=== PATIENT | female | born 1995 | race Caucasian/White ===

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

== ENCOUNTER → 2017-09-24 16:31 | Observation (INO) ==
[2017-09-24 16:21] LABS: Bilirubin,Urine Negative (Negative); Blood,Urine Negative (Negative); Clarity,Urine Clear (Clear); Color,Urine Yellow (Yellow); Glucose,Urine (UA) Normal (Normal); Ketones,Urine Negative (Negative); Leukocyte Esterase,Urine Negative (Negative); Nitrite,Urine Negative (Negative); PH,Urine 6.5 pH Units (5.0-8.0); Protein,Urine Negative (Neg-Trace); Specific Gravity,Urine 1.015 (1.010-1.025); Urobilinogen,Urine Normal (Normal)
--- NOTE | 2017-09-24 16:34 | OB/GYN Progress Note ---
Date of Encounter: 09/24/17 Time of Encounter: 16:32 - Assessment and Plan (1) 20 weeks gestation of Current Visit: Yes Status: Acute (2) Vaginal discharge during in second trimester Current Visit: Yes Status: Acute Speculum exam shows thick white vaginal discharge consistent with normal , cervix closed, patient discharged home with labor and when to return to triage precautions (3) Pain of round ligament complicating , antepartum Current Visit: Yes Status: Acute Discussed round ligament pain in and comfort measures Subjective - Subjective Interval history: 20+5 weeks gestation presents to triage with complaints of vaginal red/ brown discharge since 09/10. Patient states she is been noticing she is been having leg a dark red to brown discharge, has increased in heaviness today. Last had intercourse last night at 5 PM. Complains of occasional groin pain and cramping. Reports movement, denies leaking of fluid Antepartum ROS: vaginal bleeding, movement normal, no loss of fluid, no contractions Objective - Exam FHR comments: Doppler tones 140 Abdomen: Present: soft, gravid Cervical dilation: Closed/thick/high
[2017-09-24 16:49] LABS: Amphetamine Screen,Urine Negative ng/mL (Cutoff=1000); Barbiturate Screen,Urine Negative ng/mL (Cutoff=200); Benzodiazepines Screen,Urine Negative ng/mL (Cutoff=200); Cannabinoid Screen,Urine Negative ng/mL (Cutoff = 50); Cocaine Screen,Urine Negative ng/mL (Cutoff= 300); Opiate Screen,Urine Negative ng/mL (Cutoff=300); Phencyclidine Screen,Urine Negative ng/mL (Cutoff=25)
== END | disposition home or self-care (01) ==
LOC: 1NENULAB
PROVIDERS: ADMIT Advanced Practice Midwife; ATTEND Advanced Practice Midwife

== ENCOUNTER 2018-01-16 13:30 | Inpatient (IN) ==
[~2018-01-16 13:30] MED LIST changes: +*HR* Nalbuphine 10 MG/ML AMPUL IVP PRN; -*HR* Nalbuphine 20 MG/ML AMPUL IVP PRN; -Penicillin G Potassium 5,000,000 UNIT in D5% in Water (Mini-Bag+) 100 ML IVPB ONE
[2018-01-16 14:11] LABS: Basophils % 0.2 %; Eosinophils % 0.2 %; Hematocrit 31.5 % (35.3-44.9); Hemoglobin 10.5 g/dL (11.5-15.4); Lymphocytes # 2.9 K/mcL (0.6-4.6); Lymphocytes % 17.2 %; Mean Corpuscular HGB Conc 33.3 g/dL (31.6-35.5); Mean Corpuscular Hemoglobin 27.6 pg (28.0-33.3); Mean Corpuscular Volume 82.9 fL (83.0-100.0); Mean Platelet Volume 10.3 fL (9.4-12.4); Monocytes # 0.8 K/mcL (0.0-1.3); Monocytes % 4.8 %; Neutrophils # 13.1 K/mcL (1.6-8.9); Platelet Count 284 K/mcL (140-400); Red Cell Distribution Width 13.1 % (11.5-14.5); Segmented Neutrophils % 76.6 %
--- NOTE | 2018-01-16 14:22 | OB/GYN History & Physical ---
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 Peratla updated on patient's status and POC History of Present Illness Chief complaint: Spontaneous rupture of membranes HPI: Ms. Gonzales is a 22 year old female at 37w0d presents to labor and delivery with complaints of SROM. Patient reports her water broke around 1200. She denies any abnormal color or odor to the fluid. Patient reports +FM. Denies feeling regular contractions. Patient denies any complications with her current or past . She receives care with the Midwives. Blood type: B+ Rubella: Immune Hep B: Nonreactive GBS: Negative Cystic Fibrosis carrier-FOB was tested and Negative Past Med Surg Social Fam HX - Past Medical History Source: patient Medical history: no medical history, glaucoma Additional medical history: miscarriage Psychiatric history: no psych history - Past Surgical History Surgical History: no surgical history - Social History Smoking Status: Current every day smoker Smokeless Tobacco Status: No Alcohol use: none Drug use: none Current living situation: Home - Independent Activity Level: Independent ambulation Recent Out of Country Travel Within the Last 8 Weeks: No Exposure or Possible Exposure to Illness During Travel: No - Family History Grandmother Living Status: Still Living Hx Family Endocrine Disorder: Yes (diabetes) Obstetrical History - Pregnancies : 3 Para: 1 Term: 1 : 0 Ab's: 1 Livin Medications and Allergies Vit/FA 1 each PO DAILY tab 10/25/16 [Rx] Ferrous Sulfate 325 mg PO DAILY 01/16/18 [History] Allergy/AdvReac Type Severity Reaction Status Date / Time clindamycin Allergy Rash Verified 04/25/15 15:45 Review of System OB - Constitutional Constitutional ROS IM: no chills, no fever(s), no headache(s) - Cardiovascular Cardiovascular: no chest pain, no irregular heart rhythm, no palpitations, no pedal edema, no syncope - Respiratory Respiratory: no dyspnea - Gastrointestinal Gastrointestinal: no cramping, no diarrhea, no heartburn, no nausea, no vomiting - Genitourinary Genitourinary: no abnormal vaginal bleeding, no difficulty urinating, no dysuria, no flank pain, no urinary frequency, no urinary incontinence, no vaginal odor, no vaginal pruritis Exam - Constitutional Constitutional: well developed, well nourished, no acute distress - HEENT HEENT: Normocephaly, Mucus Membranes Moist - Neck Neck exam: full ROM, supple - Lungs Respiratory exam: CTAB - Cardiovascular Cardiovascular exam: RRR, +S1, +S2 - Abdomen Abdomen: Present: bowel sounds normal, gravid, non tender - Extremities Extremities exam: full ROM, normal capillary refill, normal inspection Deep Tendon Reflex Grade: 2+ Normal - Cervix Dilation: 2 (per RN on admission) Effacement: 80 Station: -1 - Uterus Uterus exam: Present: normal size, normal contour - Anus/Rectum Anus/Rectum: Present: normal perianal skin - Comments Comments: FHR 125 bpm moderate variability +15x15 accels no decels noted irregular contractions. Cat. 1 tracing Results Result Diagrams: 01/16/18 13:31 Abnormal lab results WBC 17.1 K/mcL (4.3-11.1) H 01/16/18 13:31 RBC 3.80 M/mcL (3.82-4.97) L 01/16/18 13:31 Hgb 10.5 g/dL (11.5-15.4) L 18 13:31 Hct 31.5 % (35.3-44.9) L 01/16/18 13:31 MCV 82.9 fL (83.0-100.0) L 01/16/18 13:31 MCH 27.6 pg (28.0-33.3) L 01/16/18 13:31 Neutrophils # 13.1 K/mcL (1.6-8.9) H 01/16/18 13:31 All other labs normal. - VTE Reasons for not Prescribing Prophylaxis: Treatment not Indicated - Low risk for VTE
[2018-01-16 14:34] LABS: Amphetamine Screen,Urine Negative ng/mL (Cutoff=1000); Barbiturate Screen,Urine Negative ng/mL (Cutoff=200); Benzodiazepines Screen,Urine Negative ng/mL (Cutoff=200); Cannabinoid Screen,Urine Negative ng/mL (Cutoff = 50); Cocaine Screen,Urine Negative ng/mL (Cutoff= 300); Opiate Screen,Urine Negative ng/mL (Cutoff=300); Phencyclidine Screen,Urine Negative ng/mL (Cutoff=25)
[2018-01-16] MEDS ORDERED: Oxytocin 20 units/ LR 1000 mL 20 UNIT/1,000 ML BAG IVC SCH (14:45)
[2018-01-16] MEDS: Ringers Solution, Lactated 1,000 ML IVC SCH (15:15)
--- NOTE | 2018-01-16 16:04 | Anesthesia Evaluation PreOp ---
Date of Encounter: 01/16/18 Time of Encounter: 16:02 - Past History Planned Operation: patricia Cardiac History: Denies any Significant Hx Pulmonary History: Smoker (1/2 ppd), Pack/yr (4) PRESSFITTER History: Denies Any Significant HX Other Medical History: GERD Anesthesia History: No Prior Anesthetic Complications, Past Anesthesia (patricia) : Yes Test: Positive Alcohol Use: none Drug use: none Medications and Allergies Vit/FA 1 each PO DAILY tab 10/25/16 [Rx] Ferrous Sulfate 325 mg PO DAILY 01/16/18 [History] Allergy/AdvReac Type Severity Reaction Status Date / Time clindamycin Allergy Rash Verified 04/25/15 15:45 - Meds/Allergy Pre-op Review Medications Reviewed: Yes Allergies Reviewed: Yes Beta Blockers on Current Med List: No Anesthesia Results - Labs 01/16/18 13:31 Anesthesia Exam 110/60 93 16 fht 113 Height: 5'1" Weight: 87 NPO (# of Hours): 1 Pain Scale: 3 Pain Scale Used: Numeric (1 - 10) - HEENT Pupil (Motor): Pupils equal Mallampati: II Teeth: Normal Oral Opening: Greater than 3 - PRESSFITTER LOC: Oriented PRESSFITTER Motor: Normal RUE, Normal LUE, Normal RLE, Normal LLE, Normal Face PRESSFITTER Sensory: Normal: RUE, LUE, RLE, LLE, Face - Cardiac Rhythm: Regular Murmur: None - Pulmonary Breath Sounds: bilateral Clear Respiratory Effort: Symmetrical Anesthesia Assess/Plan Level of consciousness: Cooperative Anesthetic Plan: Epidural (risks discussed questions answered consented) Autologous Blood: No Monitoring Plan: Standard Monitors
[2018-01-16] MEDS ORDERED: *HR* Ropivacaine/PF 0.2% 20 ML VIAL EP ONE (16:07)
[2018-01-16] MEDS ORDERED: *HR* FentaNYL (PF) 100 MCG/2 ML VIAL EP ONE (16:07)
[2018-01-16] MEDS ORDERED: Lidocaine -MPF 2% 5 ML VIAL ONE (16:10)
[2018-01-16] MEDS ORDERED: *HR* FentaNYL (PF) 100 MCG/2 ML VIAL ONE (16:10)
[2018-01-16] MEDS ORDERED: *HR* Ropivacaine/PF 0.2% 20 ML VIAL ONE (16:10)
[2018-01-16] MEDS ORDERED: Epidural Premix (fent/bupiv) 110 ML EP SCH (16:15)
--- NOTE | 2018-01-16 18:38 | OB Labor Progress Note ---
Date of Encounter: 01/16/18 Time of Encounter: 18:36 Labor Progress Note - Subjective Subjective: Patient reports contractions are getting stronger but still tolerable. Denies need for intervention - Cervix Cervix: 3.5/80/-1 - Heart Tones Heart Tones: 120 bpm moderate variability +15x15 accels with early decels noted. Cat. 1 tracing. - [place]: 2-4 min apart - Interventions Interventions: SVE Dr. Peralta updated on patient's status - Plan Plan: Continue labor management Patient may have Nubain or epidural when desires anticipate
--- NOTE | 2018-01-16 20:47 | Anesthesia Procedures ---
Addendum entered and electronically signed by Joshua Cunningham CRNA 01/17/18 06:20: Infant Delivery Date: 01/17/18 Infant Delivery Time: 02:00 Original Note: Date of Encounter: 01/16/18 Time of Encounter: 20:45 Procedures: Anesthesia - Epidural/Spinal Patient ID/Chart reviewed: Yes Patient examined: Yes OB Eval: Gestational age: 37 OB Eval: : 3 OB Eval: Hx Para: 1 OB Eval: Dilated at (cm): 4 OB Eval: Contractions: Non-stressed pattern Consent Obtained: Yes Supplemental Oxygen: None/Room Air Site Prep: Aseptic Technique, Sterile prep and drape, 0.5% Chlorhexidine/Alcohol Patient position: upright Local Anesthetic: Lidocaine 1% Amount of Local Anesthetic used: 3 Touhy Needle Gauge: 18 Touhy Needle Depth (cm): 8 Catheter Depth at Skin (cm): 20 Test Dose (1.5% Lido + Epi): Volume given (mls): 3 Test Dose Result: Negative Loading Dose: Fentanyl (mcg): 100 Loading Dose: Other: rop 0.2% 10cc Loading Dose Administered: Thru Touhy Needle Infusion Med: 0.125% Bupivacaine w/ 2 mcg/ml Fentanyl Infusion Rate (mls/hr): 15 (pcea 5cc q30") Catheter Secured in Place: Tegaderm Interspace Used: L2-L3 Loss of Resistance (URI): Yes Blood: No CSF: No Paresthesia: No Procedure: aseptic, brittany well, vss,effective Vitals + FHT's: 104/78 88 16 fht 135
[2018-01-16] MEDS ORDERED: Famotidine 20 MG/2 ML VIAL IVP ONE (21:18)
--- NOTE | 2018-01-16 21:46 | OB Labor Progress Note ---
Date of Encounter: 01/16/18 Time of Encounter: 21:44 Labor Progress Note - Subjective Subjective: Patient resting comfortably after epidural placement - Vital Signs Vital Signs: WNL, Afebrile - Cervix Cervix: 4/90/-2 - Heart Tones Heart Tones: 120 bpm, moderate variability, +15x15 accels, no decelerations - [place]: q 2-3 minutes - Interventions Interventions: SVE IUPC placed for accurate contraction monitoring - Plan Plan: Continue labor augmentation Anticipate
[2018-01-16] MEDS ORDERED: 0.9 % Sodium Chloride 1,000 ML ONE (23:25)
--- NOTE | 2018-01-16 23:31 | OB Labor Progress Note ---
Date of Encounter: 01/16/18 Time of Encounter: 23:28 Labor Progress Note - Subjective Subjective: Patient resting without complaint of pain. Support person at bedside. - Vital Signs Vital Signs: WNL, Afebrile - Cervix Cervix: 5/90/-1 - Heart Tones Heart Tones: FHR 120 bpm, moderate variability, no accelerations, recurrent variable d ecelerations. - [place]: 2-3 min - Interventions Interventions: SVE, Small forebag noted with SVE, AROM for scant amount of fluid. FSE placed at RN request due to difficulty tracing when patient repositioned. Pitocin turned off at this time, intrauterine resuscitation measures performed. - Plan Plan: Continue labor management Begin amnioinfusion for recurrent variable decelerations Dr. Peralta updated on heart rate tracing. Anticipate .
[2018-01-17] MEDS ORDERED: Terbutaline 1 MG/ML VIAL SQ ONE ×2 (01:06→01:08)
[2018-01-17] MEDS ORDERED: Oxytocin 20 units/ LR 1000 mL 20 UNIT/1,000 ML BAG IVC SCH (02:17)
[2018-01-17] MEDS ORDERED: Sennosides 8.6 MG TABLET PO PRN (02:17)
--- NOTE | 2018-01-17 02:19 | OB/GYN Procedure Note ---
Delivery - Delivery Date: 01/17/18 Provider: Huong Peralta Intrapartum events: febrile- temp >100.3 Delivery induction: none Delivery augmentation: pitocin Delivery monitor: external FHT, external uterine, internal FHT, internal uterine Anesthesia: epidural Quantitated Blood Loss: 50 - (s) Infant A Infant Delivery Date: 01/17/18 Delivery Time: 02:00 Presentation: vertex Position: SUE Route of delivery: Gender: Male Viability: Viable Pounds: 5 Ounces: 12 Weight Gram: 2.615 kg at 1 minute: 8 at 5 mins: 9 Shoulder Dystocia: not encountered Placenta: spontaneous Cord: 3 umbilical vessels - Repair Episiotomy: none Laceration Description: Superficial (Periurethral/labial) - Complications Delivery complications: none Delivery comments: The patient was complete and pushing with epidural anesthesia. Just prior to pushing the patient spiked a temperature of 102.7. I supervised Olga Rosenberg CNM with a spontaneous vaginal delivery in the SUE position of a vigorous male infant weighing 5 lbs.12oz. with Apgars of 8 at 1 minute and 9 at 5 minutes. was placed on the maternal abdomen and care was transferred to the care team. The cord was clamped and cut after pulsations ceased. The placenta was delivered spontaneous and intact. Superficial periurethral lacerations were hemostatic and not repaired. Estimated blood loss 50 mL, complications none. The placenta was inspected and appeared to have an accessory lobe with calcifications. - Disposition Mom disposition: stable in LDR disposition: stable in LDR
[2018-01-17] MEDS ORDERED: Acetaminophen 325 MG TABLET PO PRN (02:29)
[2018-01-17] MEDS: MetroNIDAZOLE 500 MG/100 ML 500 MG/100 ML BAG IVPB SCH ×3 (02:38→18:21)
[2018-01-17] MEDS ORDERED: Ondansetron 4 MG/2 ML VIAL ONE (03:03)
[2018-01-17] MEDS ORDERED: Ondansetron 4 MG/2 ML VIAL IVP PRN (03:03)
[2018-01-17] MEDS: cefOXitin 2,000 MG in 0.9 % Sodium Chloride Mini Bag 100 ML IVPB SCH ×3 (03:45→19:36)
[2018-01-17] MEDS: Ibuprofen 600 MG TABLET PO SCH ×2 (04:47→17:48)
[2018-01-17] MEDS ORDERED: Acetaminophen 325 MG TABLET PO SCH (06:00)
[2018-01-17] MEDS: Prenatal Vit/FA 1 EACH TABLET PO SCH (08:20)
[2018-01-17 11:54] LABS: Hematocrit 32.6 % (35.3-44.9); Hemoglobin 10.7 g/dL (11.5-15.4); Mean Corpuscular HGB Conc 32.8 g/dL (31.6-35.5); Mean Corpuscular Hemoglobin 27.5 pg (28.0-33.3); Mean Corpuscular Volume 83.8 fL (83.0-100.0); Mean Platelet Volume 10.2 fL (9.4-12.4); Nucleated Red Blood Cells 0.1 /100 WBC (0); Platelet Count 203 K/mcL (140-400); Red Blood Count 3.89 M/mcL (3.82-4.97); Red Cell Distribution Width 13.2 % (11.5-14.5)
[2018-01-17 12:41] LABS: Anisocytosis 1+ (Not Present); Lymphocytes # 1.9 K/mcL (0.6-4.6); Neutrophils # 29.7 K/mcL (1.6-8.9); Platelet Estimate Normal (Normal); Poikilocytosis 1+ (Not Present)
[2018-01-17] MEDS ORDERED: Ringers Solution, Lactated 1,000 ML ONE ×2 (14:48→23:59)
[2018-01-17] MEDS: Ringers Solution, Lactated 1,000 ML IVC SCH (14:50)
[2018-01-17] MEDS ORDERED: Mag Hydrox/Al Hydrox/Simeth 30 ML UDC PO ONE (21:14)
[2018-01-18] MEDS: MetroNIDAZOLE 500 MG/100 ML 500 MG/100 ML BAG IVPB SCH (03:05)
[2018-01-18] MEDS: Ibuprofen 600 MG TABLET PO SCH ×2 (03:29→08:27)
[2018-01-18] MEDS: cefOXitin 2,000 MG in 0.9 % Sodium Chloride Mini Bag 100 ML IVPB SCH (04:08)
[2018-01-18 04:22] LABS: Nucleated Red Blood Cells 0.1 /100 WBC (0)
[2018-01-18 04:23] LABS: Hematocrit 28.3 % (35.3-44.9); Hemoglobin 9.4 g/dL (11.5-15.4); Mean Corpuscular HGB Conc 33.2 g/dL (31.6-35.5); Mean Corpuscular Hemoglobin 27.4 pg (28.0-33.3); Mean Corpuscular Volume 82.5 fL (83.0-100.0); Mean Platelet Volume 10.6 fL (9.4-12.4); Platelet Count 194 K/mcL (140-400); Red Blood Count 3.43 M/mcL (3.82-4.97); Red Cell Distribution Width 13.4 % (11.5-14.5)
[2018-01-18 05:16] LABS: Anisocytosis 1+ (Not Present); Monocytes # 0.7 K/mcL (0.0-1.3); Platelet Estimate Normal (Normal)
[2018-01-18 05:17] LABS: Macrocytosis Present (Not Present); Ovalocytes 1+ (Not Present); Poikilocytosis 1+ (Not Present); Polychromasia 1+ (Not Present)
[2018-01-18] MEDS: Piperacillin/Tazobactam 3.375 GM in 0.9 % Sodium Chloride Mini Bag 100 ML IVPB SCH ×2 (08:26→16:44)
[2018-01-18] MEDS: Prenatal Vit/FA 1 EACH TABLET PO SCH (08:27)
[2018-01-18] MEDS ORDERED: Famotidine 20 MG/2 ML VIAL IVP ONE (08:57)
--- NOTE | 2018-01-18 10:23 | OB/GYN Progress Note ---
Date of Encounter: 01/18/18 Time of Encounter: 10:21 - Assessment and Plan (1) anemia Current Visit: Yes Status: Acute Increase iron supplementation twice a day (2) Leukocytosis Current Visit: Yes Status: Acute Check CBC tomorrow morning Qualifiers: Leukocytosis type: unspecified Qualified Code(s): D72.829 - Elevated white blood cell count, unspecified (3) Breast feeding status of mother Current Visit: No Status: Acute consult when necessary (4) Vaginal delivery Current Visit: No Status: Acute Continue routine care Dermoplast when necessary Ice pack when necessary Possible discharge home tomorrow Subjective - Subjective Principal diagnosis: s/p Interval history: Feeling well. Out of bed without dizziness. Some perineal discomfort-using ice pack. Cramping minimal, using ibuprofen. every 2-3 hours. Some nipple soreness. Voiding without difficulty. Passing flatus, no BM yet. Tolerating regular diet. Patient reports: appetite normal, voiding normally, pain well controlled, ambulating normally [place]: doing well, nursing well Objective - Latest Vital Signs Latest vital signs: Vital Signs Temp Pulse Resp BP Pulse Ox 01/18/18 07:55 98 F 74 12 97/60 95 01/18/18 04:00 97.9 F 70 14 93/55 98 01/18/18 00:00 98.1 F 84 16 103/58 97 01/17/18 20:15 98.6 F 92 16 98/52 98 01/17/18 16:12 98.2 F 87 14 115/66 96 01/17/18 10:27 98.2 F 77 14 96/61 98 Intake and Output 01/17/18 01/18/18 01/18/18 23:59 07:59 15:59 Intake Total 650 / 650 0 / 0 Output Total 300 / 300 Balance 650 / 650 -300 / -300 Intake: IV Fluids 200 / 200 0 / 0 Flagyl Premix 500 MG/100 ML 500 100 / 100 mg In 100 ml @ 100 mls/hr IVPB Q8H [facility] Rx#:[id number] Mefoxin 2,000 MG In 0.9 % 100 / 100 0 / 0 Sodium Chloride (Mini-Bag +) 100 ML @ 200 mls/hr IVPB Q8H [facility] Rx#:[id number] Oral 450 / 450 Output: Urine 300 / 300 Other: Weight 88.36 kg Patient Weight 01/18/18 23:59 Weight 88.36 kg - Exam Lungs: bilateral: normal Chest: Normal S1, Normal S2 Extremities: Present: normal Abdomen: Present: normal appearance, soft Uterus: Present: normal, firm Uterus Position: 1 Finger Above Umbilicus, Midline Comments: Breasts: Soft, nontender; nipples intact without erythema - Labs Labs: Laboratory Results - last 24 hr 01/17/18 01/18/18 11:40 03:55 WBC 31.6 H* D 33.7 H* RBC 3.89 3.43 L Hgb 10.7 L 9.4 L Hct 32.6 L 28.3 L MCV 83.8 82.5 L MCH 27.5 L 27.4 L MCHC 32.8 33.2 RDW 13.2 13.4 Plt Count 203 194 MPV 10.2 10.6 Seg Neutrophils % 64.0 84.0 Band Neutrophils % 30.0 H 8.0 H Lymphocytes % 6.0 6.0 Monocytes % 2.0 Neutrophils # 29.7 H 31.0 H Lymphocytes # 1.9 2.0 Monocytes # 0.7 Nucleated RBCs/100 WBC 0.1 H 0.1 H Platelet Estimate Normal Normal Polychromasia 1+ A Poikilocytosis 1+ A 1+ A Anisocytosis 1+ A 1+ A Macrocytosis Present A Ovalocytes 1+ A
[2018-01-19] MEDS: Piperacillin/Tazobactam 3.375 GM in 0.9 % Sodium Chloride Mini Bag 100 ML IVPB SCH ×2 (00:38→09:07)
[2018-01-19] MEDS: Ibuprofen 600 MG TABLET PO SCH (00:39)
[2018-01-19 05:55] LABS: Basophils # 0.1 K/mcL (0.0-0.2); Basophils % 0.3 %; Eosinophils # 0.2 K/mcL (0.0-0.6); Eosinophils % 0.9 %; Hematocrit 27.9 % (35.3-44.9); Hemoglobin 9.3 g/dL (11.5-15.4); Immature Granulocytes % 3.6 % (0-4); Lymphocytes # 3.5 K/mcL (0.6-4.6); Lymphocytes % 16.7 %; Mean Corpuscular HGB Conc 33.3 g/dL (31.6-35.5); Mean Corpuscular Hemoglobin 27.5 pg (28.0-33.3); Mean Corpuscular Volume 82.5 fL (83.0-100.0); Mean Platelet Volume 10.7 fL (9.4-12.4); Monocytes # 1.1 K/mcL (0.0-1.3); Monocytes % 5.2 %; Neutrophils # 15.6 K/mcL (1.6-8.9); Nucleated Red Blood Cells 0.1 /100 WBC (0); Platelet Count 204 K/mcL (140-400); Red Blood Count 3.38 M/mcL (3.82-4.97); Red Cell Distribution Width 13.5 % (11.5-14.5); Segmented Neutrophils % 73.3 %
[2018-01-19 08:32] VITALS: BP 103/65
[2018-01-19] MEDS: Prenatal Vit/FA 1 EACH TABLET PO SCH (08:48)
--- NOTE | 2018-01-19 08:51 | Discharge Summary ---
Date of Encounter: 01/19/18 Time of Encounter: 08:50 - Discharge Diagnosis (1) Status post vaginal delivery Priority: Primary Status: Acute Comments: Continue routine care. Tolerating regular diet, voiding without difficulty, pain well controlled. Discharge to Guest status today (2) Chorioamnionitis, delivered, current hospitalization Priority: Secondary Status: Acute Comments: Patient has been receiving IV antibiotics. Currently afebrile. Discontinue IV antibiotics and begin by mouth Flagyl and Augmentin for 2 weeks at recommendation of Dr. Peralta. (3) anemia Priority: Secondary Status: Acute Comments: Patient asymptomatic with hemoglobin of 9.3. Discharge home with prescription for iron daily (4) Breast feeding status of mother Priority: Secondary Status: Acute Comments: support when necessary Patient states she already has a breast pump at home - Discharge Medications Prescriptions: Ibuprofen [Motrin] 600 mg PO Q6HR #60 tablet Amoxicillin/Clavulanate [Augmentin] 875 mg PO BIDWM #28 tablet Ferrous Sulfate 325 mg PO DAILY #30 tablet metroNIDAZOLE [Flagyl] 500 mg PO BID #28 tablet Home Medications: Vit/FA 1 each PO DAILY tab 10/25/16 [Rx] Acetaminophen [Tylenol] 650 mg PO Q6HR PRN tablet 01/19/18 [Rx] Amoxicillin/Clavulanate [Augmentin] 875 mg PO BIDWM #28 tablet 01/19/18 [Rx] Docusate [Colace] 100 mg PO BID capsule 01/19/18 [Rx] Ferrous Sulfate 325 mg PO DAILY #30 tablet 01/19/18 [Rx] Ibuprofen [Motrin] 600 mg PO Q6HR #60 tablet 01/19/18 [Rx] metroNIDAZOLE [Flagyl] 500 mg PO BID #28 tablet 01/19/18 [Rx] Allergies/Adverse Reactions: Allergy/AdvReac Type Severity Reaction Status Date / Time clindamycin Allergy Rash Verified 04/25/15 15:45 Data Procedures and tests throughout hospitalization: Laboratory Tests 01/16/18 01/16/18 01/17/18 13:31 14:00 11:40 WBC 17.1 H 31.6 H* D RBC 3.80 L 3.89 Hgb 10.5 L 10.7 L Hct 31.5 L 32.6 L MCV 82.9 L 83.8 MCH 27.6 L 27.5 L MCHC 33.3 32.8 RDW 13.1 13.2 Plt Count 284 203 MPV 10.3 10.2 Immature Gran % 1.0 Seg Neutrophils % 76.6 64.0 Band Neutrophils % 30.0 H Lymphocytes % 17.2 6.0 Monocytes % 4.8 Eosinophils % 0.2 Basophils % 0.2 Neutrophils # 13.1 H 29.7 H Lymphocytes # 2.9 1.9 Monocytes # 0.8 Eosinophils # 0.0 Basophils # 0.0 Nucleated RBCs/100 WBC 0.1 H Platelet Estimate Normal Polychromasia Poikilocytosis 1+ A Anisocytosis 1+ A Macrocytosis Ovalocytes Urine Opiates Screen Negative Ur Barbiturates Screen Negative Ur Phencyclidine Scrn Negative Ur Amphetamines Screen Negative U Benzodiazepines Scrn Negative Urine Cocaine Screen Negative U Marijuana (THC) Screen Negative Ur Drug Screen Interp See Below 01/18/18 01/19/18 03:55 05:27 WBC 33.7 H* 21.3 H RBC 3.43 L 3.38 L Hgb 9.4 L 9.3 L Hct 28.3 L 27.9 L MCV 82.5 L 82.5 L MCH 27.4 L 27.5 L MCHC 33.2 33.3 RDW 13.4 13.5 Plt Count 194 204 MPV 10.6 10.7 Immature Gran % 3.6 Seg Neutrophils % 84.0 73.3 Band Neutrophils % 8.0 H Lymphocytes % 6.0 16.7 Monocytes % 2.0 5.2 Eosinophils % 0.9 Basophils % 0.3 Neutrophils # 31.0 H 15.6 H Lymphocytes # 2.0 3.5 Monocytes # 0.7 1.1 Eosinophils # 0.2 Basophils # 0.1 Nucleated RBCs/100 WBC 0.1 H 0.1 H Platelet Estimate Normal Polychromasia 1+ A Poikilocytosis 1+ A Anisocytosis 1+ A Macrocytosis Present A Ovalocytes 1+ A Urine Opiates Screen Ur Barbiturates Screen Ur Phencyclidine Scrn Ur Amphetamines Screen U Benzodiazepines Scrn Urine Cocaine Screen U Marijuana (THC) Screen Ur Drug Screen Interp Labs on day of discharge: Labs from last 24 hours 01/19/18 05:27 WBC 21.3 H RBC 3.38 L Hgb 9.3 L Hct 27.9 L MCV 82.5 L MCH 27.5 L MCHC 33.3 RDW 13.5 Plt Count 204 MPV 10.7 Immature Gran % 3.6 Seg Neutrophils % 73.3 Lymphocytes % 16.7 Monocytes % 5.2 Eosinophils % 0.9 Basophils % 0.3 Neutrophils # 15.6 H Lymphocytes # 3.5 Monocytes # 1.1 Eosinophils # 0.2 Basophils # 0.1 Nucleated RBCs/100 WBC 0.1 H Date of admission: 01/16/18 13:30 Primary care physician: Lynn Marina Consults: 01/17/18 02:17 Consult to Real Estate Administrator [CONS] Routine Comment: Vaginal delivery, consult needed Discharging clinician: Genia Rosenberg Anticipated date of discharge: 01/19/18 - Patient Status Disposition: Home, Self-Care Condition: Good Functional capacity at discharge: independent ambulation Overall status at discharge: patient is back to baseline - Discharge Instructions Follow Up With: Lynn Marina, TURN MACHINE OPERATOR [Primary Care Provider] - - Diet and Activity Activity: resume usual activities as tolerated Diet: regular diet Hospital Course Reason for admission: active labor Delivery: Episiotomy: none Laceration: none Other procedures: none complications: other (Febrile, chorio) Discharge diagnosis: IUP at term delivered baby: male Hospital course: Patient has had a normal course aside from receiving IV antibiotics for chorioamnionitis. Patient is feeling well today would like to be discharged to [facility] status. She is tolerating regular diet, voiding without difficulty, pain is well-controlled. We will discharge home with Flagyl and Augmentin for 2 weeks. To follow-up as scheduled in 4 weeks. Delivery - Delivery Date: 01/17/18 Provider: Huong Peralta Intrapartum events: febrile- temp >100.3 Delivery induction: none Delivery augmentation: pitocin Delivery monitor: external FHT, external uterine, internal FHT, internal uterine Anesthesia: epidural Quantitated Blood Loss: 50 - (s) A Delivery Date: 01/17/18 Delivery Time: 02:00 Presentation: vertex Position: SUE Route of delivery: Gender: Male Viability: Viable Pounds: 5 Ounces: 12 Weight Gram: 2.615 kg at 1 minute: 8 at 5 mins: 9 Shoulder Dystocia: not encountered Placenta: spontaneous Cord: 3 umbilical vessels - Repair Episiotomy: none Laceration Description: Superficial (Periurethral/labial) - Complications Delivery complications: none Delivery comments: The patient was complete and pushing with epidural anesthesia. Just prior to pushing the patient spiked a temperature of 102.7. I supervised Genia Rosenberg CNM with a spontaneous vaginal delivery in the SUE position of a vigorous male weighing 5 lbs.12oz. with Apgars of 8 at 1 minute and 9 at 5 minutes. was placed on the maternal abdomen and care was transferred to the care team. The cord was clamped and cut after pulsations ceased. The placenta was delivered spontaneous and intact. Superficial periurethral lacerations were hemostatic and not repaired. Estimated blood loss 50 mL, complications none. The placenta was inspected and appeared to have an accessory lobe with calcifications. Time Attestation: Total time spent providing and/or coordinating discharge services: Time Spent: Less than 30 minutes Exam - Constitutional Vitals: Temp Pulse Resp BP Pulse Ox 98.4 F 88 16 103/65 98 01/19/18 07:40 01/19/18 07:40 01/19/18 07:40 01/19/18 07:40 01/18/18 12:02 General appearance IM: A&O X 3, no acute distress, answers questions appropriately - Respiratory Respiratory exam: Present: CTAB - Cardiovascular Cardiovascular exam IM: Present: RRR, +S1, +S2 - GI/Abdominal GI/Abdominal exam IM: normal bowel sounds - Rectal Rectal exam: deferred - Uterine Tone: Firm Uterus Position: At Umbilicus - Extremities Exam Extremities exam IM: Present: full ROM, normal capillary refill, normal inspection - Neurological Exam Neurological exam: alert, normal gait, oriented X3
[2018-01-19] MEDS ORDERED: Etonogestrel 68 MG IMPLANT IL ONE (11:44)
--- NOTE | 2018-01-19 13:49 | Event Note ---
Date of Encounter: 01/19/18 Time of Encounter: 13:43 Called to patient's room for Nexplanon insertion. Patient desires Nexplanon for control and would like to have it placed prior to discharge. Examination: Informed consent was obtained and time out performed. Patient was placed in supine position with left arm in the appropriate position. Betadine was used to prep the arm in sterile fashion. 1% lidocaine was used to anesthetize. The Nexplanon was inserted in the subcutaneous tissue to the appropriate length then the Nexplanon was released. Both myself and patient can palpate the lisha without difficulty. Steri-strips and pressure dressing was applied. Patient tolerated the procedure well. Patient was instructed on wound care and to follow up prn. Patient educated on back up control for 30 days. Procedures: Correct Patient and procedure and site were verified and time out performed per policy. Therapeutic injections: 3ml of lidocaine given at site of insertion by SYDNI Patel
== END 2018-01-19 15:14 | disposition home or self-care (01) | DRG 560 ==
LOC: 1NENULAB → 1NENUOBS 01-17 04:29
PROVIDERS: ADMIT Advanced Practice Midwife; ATTEND Advanced Practice Midwife

== ENCOUNTER → 2021-03-08 17:58 | Observation (INO) ==
[2021-03-08 16:18] LABS: Basophils # 0.1 K/mcL (0.0-0.2); Basophils % 0.3 %; Eosinophils # 0.1 K/mcL (0.0-0.6); Eosinophils % 0.3 %; Hematocrit 34.7 % (35.3-44.9); Hemoglobin 11.8 g/dL (11.5-15.4); Immature Granulocytes % 0.7 % (0-4); Lymphocytes # 3.4 K/mcL (0.6-4.6); Lymphocytes % 20.6 %; Mean Corpuscular Hemoglobin 29.9 pg (28.0-33.3); Mean Corpuscular Volume 87.8 fL (83.0-100.0); Mean Platelet Volume 10.8 fL (9.4-12.4); Monocytes # 0.7 K/mcL (0.0-1.3); Monocytes % 4.3 %; Neutrophils # 12.3 K/mcL (1.6-8.9); Platelet Count 284 K/mcL (140-400); Red Blood Count 3.95 M/mcL (3.82-4.97); Red Cell Distribution Width 13.3 % (11.5-14.5); Segmented Neutrophils % 73.8 %; White Blood Count 16.6 K/mcL (4.3-11.1)
[2021-03-08 16:20] LABS: Bilirubin,Urine Small (Negative); Blood,Urine Negative (Negative); Clarity,Urine Turbid (Clear); Color,Urine Yellow (Yellow); Glucose,Urine (UA) Normal (Normal); Ketones,Urine 20 mg/dL (Negative); Leukocyte Esterase,Urine Large (Negative); Mucus,Urine Many per lpf (None-Few); Nitrite,Urine Negative (Negative); Protein,Urine 100 mg/dL (Neg-Trace); RBC,Urine 0-3 per hpf (0-3); Specific Gravity,Urine > 1.030 (1.010-1.025); Squamous Epithelial Cell,Urine Moderate per hpf (None-Few); WBC,Urine 30-50 per hpf (0-3)
[2021-03-08 16:36] LABS: Alanine Aminotransferase 6 Units/L (7-52); Aspartate Amino Transferase 11 Units/L (13-39); BUN/Creatinine Ratio 14 (6-26); Blood Urea Nitrogen 7 mg/dL (6-20); Lactate Dehydrogenase 137 Units/L (140-271); Uric Acid 4.3 mg/dL (2.3-7.6); eGFR For African Americans > 60 (> 60); eGFR For Non-African Americans > 60 (> 60)
[2021-03-08 17:28] LABS: Protein/Creatinine Ratio,Urine 0.32 mg/mg (0.00-0.20)
[~2021-03-08 17:58] MED LIST changes: -*HR* Nalbuphine 10 MG/ML AMPUL IVP PRN; -Famotidine 20 MG/2 ML VIAL IVP PRN; -Naloxone 0.4 MG/ML INJ IVP PRN; -Ondansetron 4 MG/2 ML VIAL IVP PRN; +Ringers Solution, Lactated 1,000 ML IVC ONE
== END | disposition home or self-care (01) ==
LOC: 1NENULAB
PROVIDERS: ADMIT Registered Nurse; ATTEND Registered Nurse

== ENCOUNTER → 2021-04-14 23:01 | Observation (INO) ==
[2021-04-14 21:56] LABS: Bilirubin,Urine Negative (Negative); Blood,Urine Negative (Negative); Clarity,Urine Clear (Clear); Color,Urine Light-Yellow (Yellow); Glucose,Urine (UA) Normal (Normal); Ketones,Urine Negative (Negative); Leukocyte Esterase,Urine Large (Negative); Nitrite,Urine Negative (Negative); Protein,Urine Negative (Neg-Trace); RBC,Urine 0-3 per hpf (0-3); Specific Gravity,Urine 1.009 (1.010-1.025); Squamous Epithelial Cell,Urine Few per hpf (None-Few); Urobilinogen,Urine Normal (Normal); WBC,Urine 15-30 per hpf (0-3)
== END | disposition home or self-care (01) ==
LOC: 1NENULAB
PROVIDERS: ADMIT Registered Nurse; ATTEND Registered Nurse

== ENCOUNTER 2021-04-15 09:49 | Inpatient (IN) ==
[~2021-04-15 09:49] MED LIST changes: +Famotidine 20 MG/2 ML VIAL IVP PRN; +Metoclopramide 10 MG/2 ML VIAL IVP PRN; +Naloxone 0.4 MG/ML INJ IVP PRN; -Ringers Solution, Lactated 1,000 ML IVC ONE
[2021-04-15] MEDS ORDERED: Ringers Solution, Lactated 1,000 ML IVC SCH (10:00)
[2021-04-15 10:12] LABS: Basophils # 0.1 K/mcL (0.0-0.2); Basophils % 0.3 %; Eosinophils # 0.1 K/mcL (0.0-0.6); Eosinophils % 0.3 %; Hematocrit 40.2 % (35.3-44.9); Hemoglobin 13.6 g/dL (11.5-15.4); Immature Granulocytes % 1.3 % (0-4); Lymphocytes # 3.3 K/mcL (0.6-4.6); Lymphocytes % 16.3 %; Mean Corpuscular HGB Conc 33.8 g/dL (31.6-35.5); Mean Corpuscular Hemoglobin 29.3 pg (28.0-33.3); Mean Corpuscular Volume 86.6 fL (83.0-100.0); Mean Platelet Volume 11.3 fL (9.4-12.4); Monocytes # 0.9 K/mcL (0.0-1.3); Monocytes % 4.4 %; Neutrophils # 15.9 K/mcL (1.6-8.9); Nucleated Red Blood Cells 0.2 /100 WBC (0); Platelet Count 294 K/mcL (140-400); Red Blood Count 4.64 M/mcL (3.82-4.97); Red Cell Distribution Width 14.1 % (11.5-14.5); Segmented Neutrophils % 77.4 %; White Blood Count 20.5 K/mcL (4.3-11.1)
[2021-04-15] MEDS ORDERED: Rho Immune Globulin 1,500 UNIT SYRINGE IM PRN (10:41)
[2021-04-15] MEDS ORDERED: Ondansetron ODT 4 MG TAB.RAPDIS SL PRN (10:41)
[2021-04-15] MEDS ORDERED: Oxytocin 20 units/ LR 1000 mL 20 UNIT/1,000 ML BAG IVC SCH (10:41)
[2021-04-15] MEDS ORDERED: Benzocaine/Menthol 56 GM AEROSOL SPRAY TP PRN (10:41)
[2021-04-15] MEDS ORDERED: Measles/Mumps/Rubella Vacc 0.5 ML VIAL SQ PRN (10:41)
[2021-04-15] MEDS ORDERED: Lanolin 7 G OINT...G. TP PRN (10:41)
[2021-04-15] MEDS: Acetaminophen 325 MG TABLET PO SCH ×2 (11:04→18:15)
[2021-04-15 11:40] LABS: Influenza A PCR Negative (Negative); Influenza B PCR Negative (Negative); Resp. Syncytial Virus PCR Negative (Negative); SARS-CoV-2 by PCR (In House) Negative (Negative)
[2021-04-15] MEDS: Ibuprofen 600 MG TABLET PO SCH ×2 (13:10→21:19)
[2021-04-15 15:58] LABS: Amphetamine Screen,Urine Negative ng/mL (Cutoff=1000); Barbiturate Screen,Urine Negative ng/mL (Cutoff=200); Benzodiazepines Screen,Urine Negative ng/mL (Cutoff=200); Cannabinoid Screen,Urine Positive ng/mL (Cutoff = 50); Cocaine Screen,Urine Negative ng/mL (Cutoff= 300); Opiate Screen,Urine Positive ng/mL (Cutoff=300); Phencyclidine Screen,Urine Negative ng/mL (Cutoff=25)
[2021-04-16] MEDS: Acetaminophen 325 MG TABLET PO SCH ×2 (00:45→07:24)
[2021-04-16 02:26] LABS: Basophils % 0.2 %; Eosinophils # 0.1 K/mcL (0.0-0.6); Eosinophils % 0.4 %; Hematocrit 34.7 % (35.3-44.9); Immature Granulocytes % 0.8 % (0-4); Lymphocytes # 3.4 K/mcL (0.6-4.6); Lymphocytes % 17.5 %; Mean Corpuscular HGB Conc 33.7 g/dL (31.6-35.5); Mean Corpuscular Hemoglobin 29.5 pg (28.0-33.3); Mean Corpuscular Volume 87.6 fL (83.0-100.0); Mean Platelet Volume 10.6 fL (9.4-12.4); Monocytes # 0.8 K/mcL (0.0-1.3); Platelet Count 237 K/mcL (140-400); Red Blood Count 3.96 M/mcL (3.82-4.97); Red Cell Distribution Width 13.7 % (11.5-14.5); Segmented Neutrophils % 77.1 %; White Blood Count 19.4 K/mcL (4.3-11.1)
[2021-04-16 02:29] LABS: Hemoglobin 11.7 g/dL (11.5-15.4)
[2021-04-16 06:38] VITALS: BP 95/60; PULSE 73; TEMP 98.3; O2SAT 98
[2021-04-16] MEDS: Ibuprofen 600 MG TABLET PO SCH (07:24)
[2021-04-16] MEDS ORDERED: Prenatal Vit/FA 1 EACH TABLET PO SCH (09:00)
[2021-04-16] MEDS ORDERED: Etonogestrel 68 MG IMPLANT IL ONE ×2 (09:08→13:33)
== END 2021-04-16 16:02 | disposition home or self-care (01) | DRG 560 ==
LOC: 1NENULAB → 1NENUOBS 13:30
PROVIDERS: ADMIT Advanced Practice Midwife; ATTEND Advanced Practice Midwife

== ENCOUNTER 2021-04-26 16:14 | Observation (INO) ==
[2021-04-26] MEDS ORDERED: 0.9 % Sodium Chloride 1,000 ML IVC ONE (16:37)
[2021-04-26] MEDS ORDERED: Ketorolac 30 MG/ML VIAL IVP ONE (16:38)
[2021-04-26 17:03] LABS: Basophils # 0.1 K/mcL (0.0-0.2); Basophils % 0.2 %; Hematocrit 41.3 % (35.3-44.9); Immature Granulocytes % 0.8 % (0-4); Lymphocytes # 1.5 K/mcL (0.6-4.6); Lymphocytes % 4.7 %; Mean Corpuscular HGB Conc 33.9 g/dL (31.6-35.5); Mean Corpuscular Hemoglobin 29.6 pg (28.0-33.3); Mean Corpuscular Volume 87.3 fL (83.0-100.0); Mean Platelet Volume 10.3 fL (9.4-12.4); Monocytes # 0.5 K/mcL (0.0-1.3); Monocytes % 1.6 %; Neutrophils # 30.3 K/mcL (1.6-8.9); Platelet Count 290 K/mcL (140-400); Red Blood Count 4.73 M/mcL (3.82-4.97); Red Cell Distribution Width 13.7 % (11.5-14.5); Segmented Neutrophils % 92.7 %
[2021-04-26 17:06] LABS: White Blood Count 32.7 K/mcL (4.3-11.1)
[2021-04-26 17:11] LABS: INR 1.8; Prothrombin Time 19.6 Seconds (9.4-12.1)
[2021-04-26 17:13] LABS: Activated Partial Thrombo Time 35.2 Seconds (26.0-36.0)
[2021-04-26 17:22] LABS: Alanine Aminotransferase 7 Units/L (7-52); Albumin 3.9 g/dL (3.5-5.7); Albumin/Globulin Ratio 1.1 (1.1-2.2); Alkaline Phosphatase 94 Units/L (34-104); Aspartate Amino Transferase 10 Units/L (13-39); BUN/Creatinine Ratio 11 (6-26); Bilirubin,Direct 0.2 mg/dL (0.0-0.2); Bilirubin,Indirect 0.5 mg/dL (0.0-1.0); Bilirubin,Total 0.7 mg/dL (0.3-1.0); Blood Urea Nitrogen 8 mg/dL (6-20); Calcium 9.2 mg/dL (8.6-10.3); Carbon Dioxide 25 mEq/L (23-29); Chloride 100 mEq/L (98-107); Globulin 3.4 g/dL (2.4-3.5); Glucose 99 mg/dL (70-105); Lipase 7 Units/L (11-82); Osmolality,Calculated 278 (280-300); Potassium 3.1 mEq/L (3.5-5.1); Sodium 135 mEq/L (136-145); Total Protein 7.3 g/dL (6.4-8.9); eGFR For African Americans > 60 (> 60); eGFR For Non-African Americans > 60 (> 60)
[2021-04-26 17:33] LABS: Platelet Estimate Normal (Normal)
[2021-04-26] MEDS ORDERED: Ampicillin/Sulbactam 3,000 MG in 0.9 % Sodium Chloride Mini Bag 100 ML IVPB ONE (17:35)
[2021-04-26] MEDS ORDERED: Isovue-370 500 ML BOTTLE IVP ONE (17:53)
[2021-04-26] MEDS ORDERED: Gentamicin 280 MG in 0.9 % Sodium Chloride 100 ML IVPB ONE (18:00)
[2021-04-26 19:40] LABS: Bilirubin,Urine Negative (Negative); Blood,Urine Moderate (Negative); Clarity,Urine Clear (Clear); Color,Urine Light-Orange (Yellow); Glucose,Urine (UA) Normal (Normal); Ketones,Urine 40 mg/dL (Negative); Leukocyte Esterase,Urine Negative (Negative); Mucus,Urine Moderate per lpf (None-Few); Nitrite,Urine Negative (Negative); PH,Urine 6.5 pH Units (5.0-8.0); Protein,Urine 100 mg/dL (Neg-Trace); Specific Gravity,Urine > 1.030 (1.010-1.025); Squamous Epithelial Cell,Urine Few per hpf (None-Few); Urobilinogen,Urine >=8.0 mg/dL (Normal)
[2021-04-26] MEDS ORDERED: Naloxone 0.4 MG/ML INJ IVP PRN (21:45)
[2021-04-26] MEDS ORDERED: Melatonin 3 MG TABLET PO PRN (21:55)
[2021-04-26] MEDS ORDERED: Ringers Solution, Lactated 1,000 ML IVC SCH (22:30)
[2021-04-27] MEDS: Ampicillin/Sulbactam 3,000 MG in 0.9 % Sodium Chloride Mini Bag 100 ML IVPB SCH ×4 (00:04→21:22)
[2021-04-27] MEDS: Ringers Solution, Lactated 1,000 ML IVC SCH ×3 (00:04→12:55)
[2021-04-27] MEDS: *HR* HYDROcodone/Acet 5/325 mg TABLET PO PRN ×3 (00:10→21:31)
[2021-04-27] MEDS: Acetaminophen 325 MG TABLET PO PRN ×2 (05:06→12:52)
[2021-04-27] MEDS ORDERED: *HR* OxyCODONE Immed Rel 5 MG TABLET PO ONE (05:30)
[2021-04-27] MEDS: Gentamicin 90 MG in 0.9 % Sodium Chloride 100 ML IVPB SCH ×2 (05:45→14:37)
[2021-04-27 05:51] LABS: Basophils % 0.2 %; Eosinophils # 0.1 K/mcL (0.0-0.6); Eosinophils % 0.7 %; Hematocrit 40.3 % (35.3-44.9); Immature Granulocytes % 0.6 % (0-4); Lymphocytes # 2.9 K/mcL (0.6-4.6); Mean Corpuscular HGB Conc 32.3 g/dL (31.6-35.5); Mean Corpuscular Volume 89.8 fL (83.0-100.0); Mean Platelet Volume 10.9 fL (9.4-12.4); Monocytes # 0.7 K/mcL (0.0-1.3); Monocytes % 3.7 %; Neutrophils # 14.1 K/mcL (1.6-8.9); Platelet Count 268 K/mcL (140-400); Red Blood Count 4.49 M/mcL (3.82-4.97); Red Cell Distribution Width 14.1 % (11.5-14.5); Segmented Neutrophils % 78.8 %; White Blood Count 17.9 K/mcL (4.3-11.1)
[2021-04-27 06:08] LABS: BUN/Creatinine Ratio 16 (6-26); Blood Urea Nitrogen 9 mg/dL (6-20); Calcium 8.5 mg/dL (8.6-10.3); Carbon Dioxide 23 mEq/L (23-29); Chloride 106 mEq/L (98-107); Glucose 90 mg/dL (70-105); Osmolality,Calculated 282 (280-300); Potassium 3.5 mEq/L (3.5-5.1); Sodium 137 mEq/L (136-145); eGFR For African Americans > 60 (> 60); eGFR For Non-African Americans > 60 (> 60)
[2021-04-27 09:32] LABS: Influenza A PCR Negative (Negative); Influenza B PCR Negative (Negative); Resp. Syncytial Virus PCR Negative (Negative)
[2021-04-27 09:33] LABS: SARS-CoV-2 by PCR (In House) Negative (Negative)
[2021-04-27 12:26] LABS: Bacteria,Urine Few per hpf (None-Few); Bilirubin,Urine Negative (Negative); Blood,Urine Negative (Negative); Clarity,Urine Clear (Clear); Color,Urine Yellow (Yellow); Glucose,Urine (UA) Normal (Normal); Ketones,Urine Negative (Negative); Leukocyte Esterase,Urine Negative (Negative); Mucus,Urine Few per lpf (None-Few); Nitrite,Urine Negative (Negative); PH,Urine 6.5 pH Units (5.0-8.0); Protein,Urine 50 mg/dL (Neg-Trace); Specific Gravity,Urine > 1.030 (1.010-1.025); Squamous Epithelial Cell,Urine Few per hpf (None-Few); Urobilinogen,Urine >=8.0 mg/dL (Normal); WBC,Urine 15-30 per hpf (0-3)
[2021-04-27] MEDS ORDERED: Gentamicin 280 MG in 0.9 % Sodium Chloride 100 ML IVPB SCH (19:00)
[2021-04-27] MEDS: cefTRIAXone 1,000 MG in 0.9 % Sodium Chloride 10 ML IVPB SCH (22:38)
[2021-04-27] MEDS: 0.9 % Sodium Chloride 1,000 ML IVC SCH (22:38)
[2021-04-27] MEDS: Azithromycin 500 MG in 0.9 % Sodium Chloride 250 ML IVPB SCH (23:07)
[2021-04-27] MEDS: Ondansetron 4 MG/2 ML VIAL IVP PRN (23:20)
[2021-04-28] MEDS: *HR* HYDROcodone/Acet 5/325 mg TABLET PO PRN (03:29)
[2021-04-28] MEDS: Acetaminophen 325 MG TABLET PO PRN ×3 (06:39→22:32)
[2021-04-28] MEDS: MetroNIDAZOLE 500 MG/100 ML 500 MG/100 ML BAG IVPB SCH ×2 (06:40→23:20)
[2021-04-28] MEDS: 0.9 % Sodium Chloride 1,000 ML IVC SCH (06:41)
[2021-04-28 08:33] LABS: Basophils % 0.3 %; Eosinophils # 0.2 K/mcL (0.0-0.6); Eosinophils % 1.4 %; Hematocrit 33.8 % (35.3-44.9); Immature Granulocytes % 0.4 % (0-4); Lymphocytes # 2.9 K/mcL (0.6-4.6); Lymphocytes % 27.4 %; Mean Corpuscular HGB Conc 33.4 g/dL (31.6-35.5); Mean Corpuscular Hemoglobin 29.6 pg (28.0-33.3); Mean Corpuscular Volume 88.5 fL (83.0-100.0); Mean Platelet Volume 10.7 fL (9.4-12.4); Monocytes # 0.4 K/mcL (0.0-1.3); Monocytes % 3.9 %; Neutrophils # 6.9 K/mcL (1.6-8.9); Platelet Count 225 K/mcL (140-400); Red Blood Count 3.82 M/mcL (3.82-4.97); Red Cell Distribution Width 13.9 % (11.5-14.5); Segmented Neutrophils % 66.6 %; White Blood Count 10.4 K/mcL (4.3-11.1)
[2021-04-28 08:45] LABS: Hemoglobin 11.3 g/dL (11.5-15.4)
[2021-04-28 08:53] LABS: Alanine Aminotransferase 4 Units/L (7-52); Albumin 2.8 g/dL (3.5-5.7); Albumin/Globulin Ratio 1.2 (1.1-2.2); Alkaline Phosphatase 65 Units/L (34-104); Aspartate Amino Transferase 6 Units/L (13-39); BUN/Creatinine Ratio 10 (6-26); Bilirubin,Total 0.3 mg/dL (0.3-1.0); Blood Urea Nitrogen 5 mg/dL (6-20); Calcium 8.3 mg/dL (8.6-10.3); Carbon Dioxide 25 mEq/L (23-29); Chloride 108 mEq/L (98-107); Globulin 2.4 g/dL (2.4-3.5); Glucose 81 mg/dL (70-105); Osmolality,Calculated 282 (280-300); Potassium 3.4 mEq/L (3.5-5.1); Sodium 138 mEq/L (136-145); Total Protein 5.2 g/dL (6.4-8.9); eGFR For African Americans > 60 (> 60); eGFR For Non-African Americans > 60 (> 60)
[2021-04-28] MEDS: Azithromycin 500 MG in 0.9 % Sodium Chloride 250 ML IVPB SCH (22:18)
[2021-04-28] MEDS: cefTRIAXone 1,000 MG in 0.9 % Sodium Chloride 10 ML IVPB SCH (22:20)
[2021-04-28] MEDS ORDERED: Nicotine 14 MG PATCH.TD24 TD SCH (23:00)
[2021-04-29] MEDS: Acetaminophen 325 MG TABLET PO PRN (05:10)
[2021-04-29 07:41] VITALS: BP 99/65; PULSE 62; TEMP 98.2; O2SAT 99
[2021-04-29] MEDS: *HR* HYDROcodone/Acet 5/325 mg TABLET PO PRN (10:30)
[2021-04-29] MEDS: Ondansetron 4 MG/2 ML VIAL IVP PRN (12:37)
[2021-04-29] MEDS ORDERED: metroNIDAZOLE 500 MG TABLET PO ONE (13:25)
== END 2021-04-29 15:50 | disposition home or self-care (01) ==
LOC: EMEROOARM 16:14 → 1NENUOBS 16:14
PROVIDERS: ADMIT Obstetrics & Gynecology; ATTEND Obstetrics & Gynecology